=== PATIENT | female | born 1985 | race African-American/Black ===

== ENCOUNTER 2021-07-20 12:39 | Outpatient (REF) | payer BC, SELFPAY | END 2021-07-20 12:40 | disposition home or self-care (01) | LOC: HO.HOSX 12:39 | PROVIDERS: Visit Provider Physician Assistant | DX: Z13.89 Encounter for screening for other disorder (principal) ==

== ENCOUNTER 2021-08-10 06:30 | Outpatient (REF) | payer BC, SELFPAY ==
--- NOTE | ~2021-08-10 | XR_ITS ---
EXAMINATION: XR HAND, RIGHT CLINICAL INFORMATION: Pain right hand. COMPARISON: Right hand 07/15/2021 TECHNIQUE: PA, lateral, and oblique views of the right hand. FINDINGS: There is healing boxer's fracture distal fifth metacarpal with callus formation. Rest of the visualized right hand appears unremarkable. The soft tissues are normal. XR/XR hand RT min 3V IMPRESSION: There is a healing boxer's fracture fifth distal metacarpal.
== END 2021-08-10 06:31 | disposition home or self-care (01) ==
LOC: HO.HOSX 06:30
PROVIDERS: Visit Provider Physician Assistant
DX: S62.336D Displaced fracture of neck of fifth metacarpal bone, right hand, subsequent encounter for fracture with routine healing (principal); X58.XXXD Exposure to other specified factors, subsequent encounter
CPT/HCPCS: 73130

== ENCOUNTER 2021-08-27 09:44 | Outpatient (RCR) | payer BC, SELFPAY ==
--- NOTE | 2021-08-27 11:15 | MHC.OT.EP ---
[address] [phone] Occupational Therapy Plan of Care Date of Evaluation: 08/27/21 Diagnosis: DISPLACED FX ON RT HAND Assessment: MS TRAYLOR P/W BOXERS FRACTURE TO HER RIGHT DOMINANT HAND, 6 WEEKS SINCE INJURY. 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 HER GOAL FOR THERAPY IS TO IMPROVE HER STRENGTH AND DEXTERITY, TO HOW IT WAS PRIOR TO INJURY. AN 11% LIMITATION IS REPORTED PER THE QUICK DASH ASSESSMENT. ONGOING SKILLED OT IS WARRANTED TO ADDRESS THE AREAS MENTIONED ABOVE WITH FOCUS ON WORK CONDITIONING AND READINESS FOR RTW. Frequency and Duration: The patient will be seen 1X/WEEK FOR 3 WEEKS Short Term Goals: SEE BELOW [facility] Goals: IND HEP IND EDEMA MANAGEMENT IND PROGRESSION OF HEP TOLERATE 25 LB BOX CARRY AND WORK SIMULATED TASKS, WITH <2/10 PAIN Treatment Plan: Therapeutic Exercise Therapeutic Activity Home Exercise Program Splinting Neuro Re-ed Patient Education Desensitization/Sensory Re-ed Edema Control ADL Training Ultrasound NMES Iontophoresis Paraffin Fluidotherapy MHP Cold Packs Joint Mobilization Soft Tissue Mobilization Kinesiotaping Other (see comments) Electronically Signed By: BUCKY JONES OTR/L Please Sign and return to therapist. Thank you once again for your referral.
--- NOTE | 2021-09-21 12:18 | MHC.OT.DC ---
[address] [phone] F: [phone] Occupational Therapy Discharge Note Provider: Carolina Bray PA-C Diagnosis: DISPLACED FX ON RT HAND Date of Evaluation: 08/27/21 Date of Discharge: 09/21/21 Treatments to Date: 1 Cancellations to Date: 2 No Shows to Date: 1 Discharge Status: Visit Non-compliance Discharge Summary: Lilliam was seen for her initial assess just over three weeks ago, she has sinced cancelled two appointments and no-showed for today's. According to eval note, she was doing fairly well and was educated on HEP, I anticipate she has progressed well, but we will be discharging from services at this time in accordance to our attendance policy. Electronically Signed By: BUCKY JONES OTR/Too Reviewed/agree with student documentation: N/A Therapist: Please Sign and return to therapist, thank you for your referral.
== END 2021-12-30 10:03 | disposition home or self-care (01) ==
LOC: HO.OT 09:44
PROVIDERS: PCP Internal Medicine; Visit Provider Physician Assistant
DX: S62.330D Displaced fracture of neck of second metacarpal bone, right hand, subsequent encounter for fracture with routine healing (principal)
CPT/HCPCS: 97110; 97165

== ENCOUNTER 2021-09-21 08:22 | Outpatient (REF) | payer BC, SELFPAY | END 2021-09-21 08:23 | disposition home or self-care (01) | LOC: HO.HOSX 08:22 | PROVIDERS: Visit Provider Physician Assistant | DX: Z13.89 Encounter for screening for other disorder (principal) ==

== ENCOUNTER 2023-12-26 15:09 | Outpatient (REF) | payer MEDICAID, SELFPAY ==
[2023-12-26 15:35] LABS: MANUAL DIFF FLAG NO
[2023-12-26 15:45] LABS: Basophils Absolute Auto 0.1 X10*3/uL (0.0-0.2); Basophils Percent Auto 0.6 % (0-2); Eosinophils Absolute Auto 0.2 X10*3/uL (0.0-0.4); Hematocrit 36.2 % (37.0-47.0); Hemoglobin 11.7 g/dl (12.0-16.0); Imm Gran Abs Auto 0.02 X10*3/uL (0.00-0.03); Imm Gran Pct Auto 0.2 % (0.0-0.4); Lymphocytes Absolute Auto 2.7 X10*3/uL (1.2-4.9); Lymphocytes Percent Auto 33.1 % (20-40); Mean Corpuscular HGB Conc 32.3 g/dl (31.0-35.0); Mean Corpuscular Hemoglobin 27.2 pg (27.0-33.0); Mean Corpuscular Volume 84.2 fL (80.0-98.0); Mean Platelet Volume 9.3 fL (9.4-12.3); Monocytes Absolute Auto 0.6 X10*3/uL (0.1-1.2); Monocytes Percent Auto 7.4 % (2-11); Neutrophils Absolute Auto 4.5 x10*3/uL (2.0-8.3); Neutrophils Percent Auto 55.7 % (45-73); Platelet Count 426 X10*3/uL (160-400); Red Cell Distribution Width 15.8 % (11.0-16.0); White Blood Count 8.1 X10*3/uL (4.8-10.8)
[2023-12-26 15:49] LABS: Appearance Urine Clear; Color Urine Yellow; Glucose Urine UA Negative (Negative); Leukocyte Esterase Urine Trace (Negative); Nitrite Urine Negative (Negative); UMIC TRIGGER UA YES; Urine Blood Negative (Negative); Urine Ketones Negative (Negative); Urine Protein Negative (Neg-Trace)
[2023-12-26 15:52] LABS: Bacteria Urine Trace (None Seen); Hyaline Casts Urine 0-2 /LPF (0-2); RBC Urine 0-2 /HPF (0-2); Squamous Epithelial Cell Urine 0-2 /HPF (0-2); WBC Urine 0-5 /HPF (0-5)
[2023-12-26 16:02] LABS: Amphetamine Screen Urine Not Detected (Not Detect); Barbiturates, Urine Not Detected (Not Detect); Benzodiazepines Screen Urine Not Detected (Not Detect); Buprenorphine Scr Not Detected (Not Detect); Cannabinoid Screen Urine Not Detected (Not Detect); Cocaine Screen Urine Not Detected (Not Detect); Fentanyl, urine Not Detected (Not Detect); Methadone Screen, Urine Not Detected (Not Detect); Opiate Screen Urine Not Detected (Not Detect); Oxycodone Screen Urine Not Detected (Not Detect); Phencyclidine Screen Urine Not Detected (Not Detect)
[2023-12-26 16:03] LABS: Estimated Average Glucose 94 mg/dL; Hemoglobin A1C 89.7032 umol/L; Hemoglobin A1c % 4.9 % (<6.0); Total Hemoglobin (HGBA1C) 3007.3557 umol/L
[2023-12-26 16:43] LABS: Alanine Aminotransferase 16 U/L (0-31); Albumin Level 4.1 g/dL (3.5-5.0); Alkaline Phosphatase 63 U/L (39-117); Anion Gap 11 (12-20); Aspartate Amino Transferase 31 U/L (5-31); Bilirubin Total 0.3 mg/dL (0.0-1.0); Blood Urea Nitrogen 10 mg/dL (9-16); Calcium 9.2 mg/dL (8.4-10.2); Carbon Dioxide 29 mmol/L (22-29); Chloride 105 mmol/L (96-108); Cholesterol 190 mg/dL (<200); Estimated Glomerular Filt Rate > 60; Glucose Random 88 mg/dL (60-115); Potassium 5.2 mmol/L (3.3-5.1); Sodium 140 mmol/L (135-145); Total Protein 7.4 g/dL (6.5-8.0)
== END 2023-12-26 15:10 | disposition home or self-care (01) ==
LOC: HO.LAB 15:09
PROVIDERS: PCP Internal Medicine; Visit Provider Internal Medicine
DX: R63.5 Abnormal weight gain (principal); Z83.3 Family history of diabetes mellitus
CPT/HCPCS: 80053; 80307; 81001; 82465; 83036; 85025